=== PATIENT | male | born 1990 | race American Indian/Alaskan Native ===

== ENCOUNTER 2020-09-18 10:27 | Emergency (ER) | payer OTHER ==
[2020-09-18] MEDS ORDERED: HYDROcodone/ACETAMINOPHEN 5-325 MG TAB PO ONE (10:43)
[2020-09-18] MEDS ORDERED: ONDANSETRON 4 MG ODT TAB PO ONE (10:43)
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
[2020-09-18 11:04] LABS: Basophils % (Auto) 0.7 % (0.0-1.8); Eosinophils # (Auto) 0.1 K/mm3 (0.0-0.4); Eosinophils % (Auto) 1.6 % (0.0-4.3); Hematocrit 44.6 % (35.5-45.6); Hemoglobin 14.9 gm/dl (11.8-15.2); Lymphocytes # (Auto) 1.9 K/mm3 (1.2-5.4); Lymphocytes % (Auto) 28.5 % (13.4-35.0); Mean Corpuscular HGB Conc 34 % (32-34); Mean Corpuscular Volume 83 fl (84-94); Monocytes # (Auto) 0.6 K/mm3 (0.0-0.8); Monocytes % (Auto) 8.5 % (0.0-7.3); Platelet Count 355 K/mm3 (140-440); Red Blood Count 5.41 M/mm3 (3.65-5.03); Red Cell Distribution Width 13.7 % (13.2-15.2)
[2020-09-18 11:24] LABS: Alanine Aminotransferase 18 units/L (7-56); Albumin 4.2 g/dL (3.9-5); BUN/Creatinine Ratio 9; Blood Urea Nitrogen 7 mg/dL (9-20); Hemolysis Index 5
[2020-09-18 11:27] LABS: INR 1.02 (0.87-1.13)
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
[2020-09-18 11:28] LABS: Partial Thromboplastin Time 28.1 Sec. (24.2-36.6)
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
[2020-09-18 13:39] VITALS: BP 129/73
== END 2020-09-18 13:43 | disposition home or self-care (01) ==
LOC: ED 10:27
DX: S16.1XXA Strain of muscle, fascia and tendon at neck level, initial encounter (principal); M25.561 Pain in right knee; R10.30 Lower abdominal pain, unspecified; Z79.899 Other long term (current) drug therapy; V49.49XA Driver injured in collision with other motor vehicles in traffic accident, initial encounter; Y92.410 Unspecified street and highway as the place of occurrence of the external cause; Y93.89 Activity, other specified; Y99.8 Other external cause status
CPT/HCPCS: 36415; 70450; 71260; 72125; 73562; 74177; 80053; 83690; 85025; 85610; 85730; 99285; Q9967; Q0162